=== PATIENT | female | born 1995 | race Caucasian/White ===

== ENCOUNTER 2023-06-28 08:10 | Inpatient (IN) ==
[2023-06-28] MEDS ORDERED: Lactated Ringers 1000 ml BAG 1,000 ML IV ONE ×2 (09:01→13:55)
[2023-06-28 10:30] LABS: ABS Lymphocytes 1.1 10^3/uL (1.0-4.8); ABS Monocytes 0.6 10^3/uL (0.0-0.9); ABS Neutrophils 7.4 10^3/uL (1.5-7.6); ABS Nucleated RBC 0.01 10^3/ul; Eosinophil % 0.3 %; Hematocrit 34.4 % (35-45); Hemoglobin 11.5 g/dL (11.5-14.3); Lymphocyte % 11.6 %; Mean Corpuscular Hgb Conc 33.3 g/dL (31-36); Mean Corpuscular Volume 84.3 fL (80-97); Mean Platelet Volume 7.8 fL (7.5-11.2); Nucleated Red Blood Cells % 0.1 /100 WBC (0.0-0.4); Platelet Count 135 10^3/uL (150-450); Red Blood Count 4.08 10^6/uL (3.63-4.92); Red Cell Distribution Width 23.3 % (12-17); White Blood Count 9.1 10^3/uL (3.8-11.8)
[2023-06-28 11:21] LABS: Urine Benzodiazepine Screen None Detected (None Detect); Urine Cannabinoids Screen None Detected (None Detect); Urine Opiates Screen None Detected (None Detect)
[2023-06-28] MEDS ORDERED: Oxytocin in LR 20,000 MILLI.UNIT/1,000 ML BAG IV SCH ×2 (12:10→15:25)
[2023-06-28] MEDS ORDERED: Lidocaine 1.5% EPI 1:200,000 30 ML SDV ONE (12:43)
[2023-06-28] MEDS ORDERED: OBEPIDURAL (200 ML) 200 ML EPIDURAL ONE (12:43)
[2023-06-28] MEDS ORDERED: Lactated Ringers 1000 ml BAG 1,000 ML IV SCH ×3 (13:00→16:00)
[2023-06-28] MEDS ORDERED: fentaNYL 100 mcg/2 ml 50 MCG/ML VIAL ONE (13:17)
[2023-06-28] MEDS ORDERED: Bupivacaine 0.5% SDV PF 30ML VIAL ONE (13:18)
[2023-06-28] MEDS ORDERED: Phenylephrine 40 mcg/mL 10mL (400mcg) SYRINGE IV PUSH PRN ×2 (13:55)
[2023-06-28] MEDS ORDERED: Sodium Citrate/Citric Acid LIQ 15 ML UDC PO PRN (13:55)
[2023-06-28] MEDS ORDERED: OBEPIDURAL (200 ML) 200 ML EPIDURAL SCH (14:00)
[2023-06-28 14:17] LABS: Urine Appearance Clear; Urine Bilirubin Negative (Negative); Urine Blood 1+ (Negative); Urine Color Yellow; Urine Glucose Negative (Negative); Urine Ketones Negative (Negative); Urine Nitrite Negative (Negative); Urine Protein Negative (Negative); Urine Specific Gravity 1.016 (1.002-1.030); Urine Urobilinogen Negative (Negative)
[2023-06-28 14:26] LABS: Urine Bacteria Absent (Absent); Urine Red Blood Cell 3+(>10/hpf) (Absent); Urine Squamous Epithelial Cell Present (Absent); Urine White Blood Cell Trace(0-5/hpf) (Absent)
[2023-06-28] MEDS: Dibucaine 1% OINT 28.35 GM TUBE PR PRN (16:06)
[2023-06-28] MEDS: Witch Hazel PAD JAR TOPICAL PRN (16:07)
[2023-06-29] MEDS ORDERED: Tetan/Diph/Pertus SYR(Tdap) 0.5 ML SYR(BOOSTRIX) use SYR contains LATEX IM ONE (04:37)
[2023-06-29 06:28] LABS: ABS Eosinophils 0.1 10^3/uL (0.0-0.5); ABS Lymphocytes 1.6 10^3/uL (1.0-4.8); ABS Monocytes 0.6 10^3/uL (0.0-0.9); ABS Neutrophils 6.6 10^3/uL (1.5-7.6); ABS Nucleated RBC 0.01 10^3/ul; Eosinophil % 0.7 %; Hematocrit 29.3 % (35-45); Hemoglobin 9.8 g/dL (11.5-14.3); Lymphocyte % 18.3 %; Mean Corpuscular Hemoglobin 28.4 pg (27-33); Mean Corpuscular Hgb Conc 33.5 g/dL (31-36); Mean Corpuscular Volume 84.7 fL (80-97); Mean Platelet Volume 7.6 fL (7.5-11.2); Nucleated Red Blood Cells % 0.2 /100 WBC (0.0-0.4); Platelet Count 141 10^3/uL (150-450); Red Blood Count 3.46 10^6/uL (3.63-4.92); Red Cell Distribution Width 23.1 % (12-17); White Blood Count 8.9 10^3/uL (3.8-11.8)
[2023-06-30 09:55] VITALS: BP 110/74
[2023-06-30] MEDS: Dibucaine 1% OINT 28.35 GM TUBE PR PRN (10:37)
[2023-06-30] MEDS: Witch Hazel PAD JAR TOPICAL PRN (10:37)
[2023-06-30] MEDS ORDERED: Tetan/Diph/Pertus SYR(Tdap) 0.5 ML SYR(BOOSTRIX) use SYR contains LATEX IM ONE (13:00)
== END 2023-06-30 15:44 | disposition home or self-care (01) | DRG 560 ==
LOC: MCHOBOUT 08:10 → MCHOB 09:04
PROVIDERS: ADMIT Midwife; ATTEND Midwife